=== PATIENT | female | born 1945 | race Caucasian/White ===

== ENCOUNTER → 2017-09-10 08:29 | Outpatient (CLI) | payer MEDICARE ==
[2017-09-10 09:14] LABS: BASOPHILS 0.3 % (0-2); EOSINOPHILS 4.7 % (0-7); HEMATOCRIT 43.3 % (36.0-48.0); HEMOGLOBIN 14.6 g/dL (12-16); IMMATURE GRANULOCYTES 0.2 % (0-5); LYMPHOCYTES 30.8 % (15-50); MCH 31.7 pg (26.0-34.0); MCHC 33.7 g/dL (31.0-37.0); MCV 93.9 fL (80.0-100.0); MEAN PLATELET VOLUME 11.1 fL (7.4-10.4); MONOCYTES 8.9 % (2-11); NEUTROPHILS 55.1 % (40-80); PLATELET COUNT 214 10x3/uL (130-400); RBC 4.61 10x6/uL (4.00-5.40); RDW 12.8 % (11.5-14.5); WBC 6.5 10x3/uL (4.8-10.8)
[2017-09-10 09:55] LABS: ALBUMIN 3.8 g/dL (3.4-5.0); BILIRUBIN - INDIRECT 0.26 mg/dL (0.00-1.00); BILIRUBIN - TOTAL 0.28 mg/dL (0.2-1.3); PROTEIN - SERUM 7.5 g/dL (6.4-8.2)
[2017-09-10 10:00] LABS: BILIRUBIN - DIRECT 0.02 mg/dL (0.00-0.30)
[2017-09-11 13:17] LABS: HEPATITIS C ANTIBODY <0.1 (0.0-0.9)
== END | disposition home or self-care (01) ==
LOC: D.US 08:29
PROVIDERS: Internal Medicine Gastroenterology
DX: R74.8 Abnormal levels of other serum enzymes (principal); R19.4 Change in bowel habit; R12 Heartburn